=== PATIENT | male | born 1950 | race Caucasian/White ===

== ENCOUNTER 2018-04-21 14:54 | Outpatient (CLI) | payer MEDICARE ==
[2018-04-21 16:08] LABS: Hemoglobin 15.1 g/dL (14.0-18.0); Mean Corpuscular HGB CONC 34.9 g/dL (32.0-36.0); Mean Corpuscular Hemoglobin 30.6 pg (27.0-31.0); Mean Corpuscular Volume 87.7 fl (80.0-94.0); Mean Platelet Volume 6.8 fL (7.4-10.4); Platelet Count 155 thou/uL (130-400); RBC Distribution Width 12.8 % (11.5-14.5); Red Blood Cell (RBC) Count 4.94 mill/uL (4.70-6.10); White Blood Cell (WBC) Count 7.1 thou/uL (4.8-10.8)
[2018-04-21 16:19] LABS: PTT 27.5 SEC (22.9-36.1); Prothrombin Time 13.2 SEC (12.0-14.7)
[2018-04-21 16:20] LABS: ALT (SGPT) 28 U/L (8-55); AST (SGOT) 25 U/L (5-34); Albumin 4.3 g/dL (3.4-4.8); Alkaline Phosphatase 64 U/L (40-150); Anion Gap 13 mmol/L (10-20); BUN (Urea Nitrogen) 20 mg/dL (8.4-25.7); Bilirubin, Total 0.5 mg/dL (0.2-1.2); Calc. Creatinine Clearance 0 mL/min (70-130); Calcium 9.3 mg/dL (7.8-10.44); Carbon Dioxide 27 mmol/L (23-31); Chloride 103 mmol/L (98-107); Estimated GFR-MDRD 59; Globulin 2.9 g/dL (2.4-3.5); Glucose 141 mg/dL (80-115); Potassium 4.5 mmol/L (3.5-5.1); Protein, Total 7.2 g/dL (5.8-8.1); Sodium 138 mmol/L (136-145)
== END 2018-04-21 14:55 | disposition home or self-care (01) ==
LOC: LABBT 14:54
PROVIDERS: ATTEND Internal Medicine Cardiovascular Disease
DX: Z01.812 Encounter for preprocedural laboratory examination (principal); R07.9 Chest pain, unspecified; R94.39 Abnormal result of other cardiovascular function study
CPT/HCPCS: 80053; 85027; 85610; 85730

== ENCOUNTER → 2018-05-03 | Day surgery (SDC) | payer MEDICARE ==
[2018-04-21 15:19] VITALS: BMI 29.4
[~2018-05-03] MED LIST: Diazepam 5 MG TAB ONE; Fentanyl 100 MCG/2 ML VIAL ONE; Heparin 10,000 UNITS/1 ML VIAL ONE; Iopamidol 370 76% 100 ML VIAL ONE; Iopamidol 370 76% 50 ML VIAL FS ONE; Lidocaine 1% (PF) 30 ML VIAL ONE; Midazolam HCl 2 mg/2 ml Vial ONE; Naproxen 500 MG TAB PO SCH; Nitroglycerin 100MG/250ML BOT 250 ML ONE; Sodium Chloride 0.9% 1,000 ML IV SCH
== END ==
LOC: CCL 06:02
PROVIDERS: ATTEND Internal Medicine Cardiovascular Disease
DX: I25.118 Atherosclerotic heart disease of native coronary artery with other forms of angina pectoris (principal); I10 Essential (primary) hypertension; E78.5 Hyperlipidemia, unspecified; E11.9 Type 2 diabetes mellitus without complications; E78.00 Pure hypercholesterolemia, unspecified; G47.30 Sleep apnea, unspecified; Z88.0 Allergy status to penicillin; Z79.82 Long term (current) use of aspirin; Z79.899 Other long term (current) drug therapy
CPT/HCPCS: 76942; 85347 ×3; 93005; 93458; 93798; C1725; C1769 ×2; C1874; C1887; C9600; 92928; 99152; 99153; J1644; J2001; J2250; J3010

== ENCOUNTER 2019-01-01 00:14 | Outpatient (CLI) | payer MEDICARE ==
[2019-01-01 10:17] LABS: #Eosinphils 0.2 thou/uL (0.0-0.7); #Lymphocytes 1.7 thou/uL (1.20-3.40); #Monocytes 0.5 thou/uL (0.11-0.59); #Neutrophils 3.2 thou/uL (1.40-6.50); %Basophils 0.7 % (0.0-1.0); %Eosinophils 2.9 % (0.0-10.0); %Lymphocytes 30.6 % (21.0-51.0); %Monocytes 9.6 % (0.0-10.0); %Neutrophils 56.2 % (42.0-75.0); Hemoglobin 15.5 g/dL (14.0-18.0); Mean Corpuscular HGB CONC 33.9 g/dL (32.0-36.0); Mean Corpuscular Hemoglobin 30.6 pg (27.0-31.0); Mean Corpuscular Volume 90.2 fL (78.0-98.0); Mean Platelet Volume 7.3 fL (7.4-10.4); Platelet Count 163 thou/uL (130-400); RBC Distribution Width 13.1 % (11.5-14.5); Red Blood Cell (RBC) Count 5.06 mill/uL (4.70-6.10); White Blood Cell (WBC) Count 5.6 thou/uL (4.8-10.8)
[2019-01-01 10:34] LABS: Anion Gap 14 mmol/L (10-20); BUN (Urea Nitrogen) 22 mg/dL (8.4-25.7); Calc. Creatinine Clearance 0 mL/min (70-130); Calcium 9.7 mg/dL (7.8-10.44); Carbon Dioxide 26 mmol/L (23-31); Chloride 98 mmol/L (98-107); Estimated GFR-MDRD 52; Glucose 144 mg/dL (80-115); Sodium 134 mmol/L (136-145)
== END 2019-01-01 00:15 | disposition home or self-care (01) ==
LOC: LABBT 00:14
PROVIDERS: ATTEND Specialist
DX: Z01.812 Encounter for preprocedural laboratory examination (principal); K40.90 Unilateral inguinal hernia, without obstruction or gangrene, not specified as recurrent
CPT/HCPCS: 80048; 85025

== ENCOUNTER 2019-01-03 05:53 | Day surgery (SDC) | payer MEDICARE ==
--- NOTE | 2019-01-01 08:49 | HP ---
HISTORY OF PRESENT ILLNESS: Rene Field is a 68-year-old male patient, referred by Dr. Gonzáles for an inguinal hernia. The patient is appreciated to have a right inguinal hernia for the past 2 months. The patient has had a cardiac stent placed in the past, has been evaluated Dr. Gonzáles and cleared for anesthesia for robot repair of his right inguinal hernia using mesh. Dr. Cifuentes, urology, verified on exam that he had a right inguinal hernia. The patient on exam was noted to have bilateral inguinal hernias, right inguinal hernia extending to the scrotum, and left present on Valsalva. Plan is for robot repair of bilateral inguinal hernias. He understands risks and benefits, infection, bleeding, reoperation, recurrence of the hernia, chronic pain, and consents, questions answered. ALLERGIES: PENICILLIN. TOBACCO: None. ALCOHOL: Socially, occasionally. PAST MEDICAL HISTORY: Coronary artery disease, stent in April 2018, followed by Dr. Gonzáles. Diabetes mellitus type 2. Sleep apnea, on CPAP. Hypercholesterolemia, right bundle branch block, chronic. PAST SURGICAL HISTORY: Cardiac cath and stents in 2018. MEDICATIONS: 1. Vitamin B12. 2. Plavix a day. 3. Discontinued Brilinta. 4. Amlodipine 2.5 mg a day. 5. Lisinopril 20 mg a day. 6. Pravastatin 20 mg a day. 7. Hydrochlorothiazide 25 mg a day. REVIEW OF SYSTEMS: A 10-point noncontributory otherwise. PHYSICAL EXAMINATION: VITAL SIGNS: Weight 215 pounds, height 5 feet 10 inches, blood pressure 120/67, pulse 60, temperature 98.8 degrees. HEAD, EARS, EYES, NOSE, AND THROAT: Unremarkable. LUNGS: Clear to auscultation. CARDIAC: Regular rate and rhythm without murmur or gallop. ABDOMEN: Soft, nontender, and nondistended. He has bilateral inguinal hernias, right greater than left. Right is into his scrotum. Testicles are normal. EXTREMITIES: Unremarkable. ASSESSMENT: Bilateral inguinal hernias. PLAN: Robot repair using mesh, repair of bilateral inguinal hernias as outpatient. He will hold his Plavix prior to the surgery, resume it the next day. He understands risks of infection, bleeding, reoperation, risks as noted above. Questions answered. Job ID: [id number]
[2019-01-01 09:30] VITALS: BMI 30.1
[2019-01-03] MEDS ORDERED: Ketorolac Tromethamine 30 MG/ML VIAL ONE (06:24)
[2019-01-03] MEDS ORDERED: Levofloxacin 500 mg/D5W 100 ml Premix Bag ONE (06:24)
[2019-01-03] MEDS ORDERED: Bupivacaine HCl 0.5%/Epinephrine 1:200,000/PF 30 ml Vial ONE (06:59)
[2019-01-03] MEDS ORDERED: Fentanyl 250 MCG/5 ML VIAL ONE (07:34)
--- NOTE | 2019-01-03 11:01 | OP ---
DATE OF PROCEDURE: 01/03/2019 PREOPERATIVE DIAGNOSIS: Bilateral inguinal hernias, right sliding indirect. POSTOPERATIVE DIAGNOSIS: Bilateral inguinal hernias, right sliding indirect. PROCEDURES PERFORMED: Robot laparoscopic repair of bilateral inguinal hernias, 3DMax large Bard mesh used. ANESTHESIA: General, local 0.5% Marcaine with epinephrine 30 mL. DESCRIPTION OF PROCEDURE: The patient was taken to the operating room, under general anesthesia. Herman catheter was placed at the beginning of the procedure and removed at the end. Abdomen was clipped of hair, prepared with ChloraPrep, and draped in routine fashion. The patient was placed in slight Trendelenburg. Robot docked after trocars inserted. Supraumbilical incision was made and midline of left and pneumoperitoneum to 15 mmHg obtained with a Veress needle, replaced with an 11 port and endoscope placed. This was a balloon port and was inflated with 5 mL of air and then secured to the abdominal wall. Bilateral right and left incisions were made in mid abdomen laterally and an 8 mm port was placed. Robot docked and robotic inguinal hernia repair were undertaken. The patient has very large indirect right inguinal hernia and a smaller indirect left inguinal hernia with lipoma of the cord mostly. On the right side, incision was made in the peritoneum from the anterior superior iliac spine to the midline and flap of peritoneum was dissected free. Medially, the John ligament, pubis identified laterally. Dissection was carried out freeing the peritoneal flap posteriorly. Cord structures dissected free. Large indirect hernia sac dissected free from deep in the scrotum with careful dissection. It was eventually divided. Good hemostasis noted. An 8 cm cord structures cleared and right-sided 3DMax Bard mesh secured passing the medial portion of John ligament with 2-0 Vicryl and the anterior mesh to the abdominal wall lateral to the inferior epigastric vessels, which had been preserved. Cord structures preserved. Mesh properly positioned and then the peritoneal flap closed with continuous suture with #2-0 V-Loc suture. Attention then turned to the left side. Incision was made from the anterior superior iliac spine left to the midline, carried down to skin. I carried the peritoneal flap, dissected free laterally and medially identifying John ligament medially and laterally. The cord structures dissected free. Inferior epigastric vessels identified kept free of harm. Lipoma of the cord, dissected free, skeletonized the cord structures for an 8 cm clearance and then the 3DMax large mesh was left secured to the left side and positioned and secured to John ligament medially with 2-0 Vicryl and anteriorly, the left lateral inferior epigastric vessel 2-0 Vicryl to the abdominal wall. Peritoneal flap closed with continuous suture of 2-0 V-Loc suture. Good closure was appreciated. Pneumoperitoneum reduced. Fascia approximated in the midline with 0 Vicryl. Pneumoperitoneum reduced. All instruments were removed and all skin incisions were approximated to subdermal 4-0 Monocryl. Bladder pre fill with 180 mL of saline and Herman catheter removed. The patient tolerated the procedure well. Job ID: [id number]
[2019-01-03] MEDS ORDERED: Rocuronium Bromide 10 MG/ML (10ML VIAL) ONE (15:41)
[2019-01-03] MEDS ORDERED: PROPOFOL 200 MG/20 ML VIAL ONE (15:41)
[2019-01-03] MEDS ORDERED: Ondansetron PF 4 MG/2 ML Vial ONE (15:41)
== END 2019-01-03 12:40 | disposition home or self-care (01) ==
LOC: SDC 05:53
PROVIDERS: ATTEND Specialist
PROC: 0YUA4JZ Supplement Bilateral Inguinal Region with Synthetic Substitute, Percutaneous Endoscopic Approach (ICD-10-PCS; principal; 2019-01-03)
DX: K40.20 Bilateral inguinal hernia, without obstruction or gangrene, not specified as recurrent (principal); D17.6 Benign lipomatous neoplasm of spermatic cord; I25.10 Atherosclerotic heart disease of native coronary artery without angina pectoris; E11.9 Type 2 diabetes mellitus without complications; G47.30 Sleep apnea, unspecified; E78.00 Pure hypercholesterolemia, unspecified; I45.10 Unspecified right bundle-branch block; I10 Essential (primary) hypertension; Z79.02 Long term (current) use of antithrombotics/antiplatelets; Z79.82 Long term (current) use of aspirin; Z79.899 Other long term (current) drug therapy; Z88.0 Allergy status to penicillin; Z91.048 Other nonmedicinal substance allergy status; Z95.5 Presence of coronary angioplasty implant and graft; Z99.89 Dependence on other enabling machines and devices
CPT/HCPCS: 49650; C1781; J0131; J0670; J1885; J1956; J2405; J2704; J3010

== ENCOUNTER 2019-01-07 08:12 | Emergency (ER) | payer MEDICARE ==
[2019-01-07] MEDS ORDERED: Morphine 4 MG/ML VIAL ONE (08:37)
[2019-01-07] MEDS ORDERED: Ondansetron PF 4 MG/2 ML Vial ONE (08:37)
[2019-01-07 08:56] LABS: #Eosinphils 0.1 thou/uL (0.0-0.7); #Lymphocytes 1.1 thou/uL (1.20-3.40); #Monocytes 0.9 thou/uL (0.11-0.59); #Neutrophils 8.2 thou/uL (1.40-6.50); %Basophils 0.3 % (0.0-1.0); %Eosinophils 0.7 % (0.0-10.0); %Lymphocytes 11.1 % (21.0-51.0); %Monocytes 8.3 % (0.0-10.0); %Neutrophils 79.7 % (42.0-75.0); Hemoglobin 14.6 g/dL (14.0-18.0); Mean Corpuscular HGB CONC 33.2 g/dL (32.0-36.0); Mean Corpuscular Hemoglobin 30.9 pg (27.0-31.0); Mean Platelet Volume 7.4 fL (7.4-10.4); Platelet Count 173 thou/uL (130-400); RBC Distribution Width 12.8 % (11.5-14.5); Red Blood Cell (RBC) Count 4.72 mill/uL (4.70-6.10); White Blood Cell (WBC) Count 10.2 thou/uL (4.8-10.8)
[2019-01-07 09:04] LABS: INR-International Normal Ratio 1.1; PTT 33.8 SEC (22.9-36.1); Prothrombin Time 13.8 SEC (12.0-14.7)
[2019-01-07 09:19] LABS: ALT (SGPT) 18 U/L (8-55); AST (SGOT) 20 U/L (5-34); Albumin 3.8 g/dL (3.4-4.8); Alkaline Phosphatase 64 U/L (40-150); Anion Gap 18 mmol/L (10-20); BUN (Urea Nitrogen) 16 mg/dL (8.4-25.7); Bilirubin, Total 1.4 mg/dL (0.2-1.2); Calc. Creatinine Clearance 0 mL/min (70-130); Calcium 9.6 mg/dL (7.8-10.44); Carbon Dioxide 25 mmol/L (23-31); Chloride 94 mmol/L (98-107); Estimated GFR-MDRD 65; Globulin 3.5 g/dL (2.4-3.5); Glucose 143 mg/dL (80-115); Potassium 3.8 mmol/L (3.5-5.1); Protein, Total 7.3 g/dL (5.8-8.1); Sodium 133 mmol/L (136-145)
[2019-01-07 09:30] LABS: Bilirubin Small (Negative); Blood, Urine Negative (Negative); Clarity CLEAR (Clear); Glucose, Urine (Dipstick) Negative (Negative); Leukocyte Negative (Negative); Nitrite Negative (Negative); Protein, Urine (Dipstick) 100 mg/dL (Neg-Trace); Specific Gravity, Urine 1.022 (1.002-1.036); pH, Urine 5.5 (5.0-9.0)
[2019-01-07 09:33] LABS: Bacteria/HPF None Seen HPF (None Seen); Hyaline Casts/LPF 4-6 HYALINE CAST LPF (0-3 Hyaline); Pathc Cast-AUWi Flag 0.29 (0-2.49); RBC/HPF 0-3 HPF (0-3); Squamous Epithelial None Seen HPF (0-3); WBC/HPF 0-3 HPF (0-3)
--- NOTE | 2019-01-07 11:54 | ULT ---
BILATERAL TESTICULAR ULTRASOUND WITH DOPPLER: HISTORY: Recent hernia repair. Pain and swelling. COMPARISON: None. TECHNIQUE: Mcgrath scale, color flow, Doppler imaging, with spectral waveform analysis was performed of the left an d right testicle. FINDINGS: RIGHT HEMISCROTUM: There is slight heterogeneity throughout the right testicle without discrete mass. Right testicle me asures 3.1 x 2.7 x 4.4 cm. There is complex fluid with echogenicity and septation in the right hemis crotum. Right epididymis is enlarged measuring 2.7 x 1.0 x 1.1 cm. A small 0.2 cm cyst is noted. LEFT HEMISCROTUM: Slight heterogeneity of the left testicle without intratesticular mass. The left testicle measures 3 .3 x 2.3 x 3.7 cm. A small amount of fluid in the left hemiscrotum. Left epididymis is not apprecia alexandro. TESTICULAR DOPPPLER: No significant arterial flow to the right testicle. Minimal venous flow along the periphery. There is diminished arterial flow in the left testicle. IMPRESSION: Diminished vascular flow to both testicles, right greater than left. Urological consultation is helena mmended. Results of the study were discussed with Dr. Penny 01/07/2019 at 9:32 a.m. CODE CR POS: VIGNESH
== END 2019-01-07 10:25 | disposition home or self-care (01) ==
LOC: ERS 08:12
DX: N50.89 Other specified disorders of the male genital organs (principal); I10 Essential (primary) hypertension; E78.5 Hyperlipidemia, unspecified; Z79.82 Long term (current) use of aspirin; Z79.899 Other long term (current) drug therapy
CPT/HCPCS: 76870; 80053; 81003; 81015; 83605; 85025; 85610; 85730; 93976; 96374; 96375; J2270; J2405

== ENCOUNTER 2019-08-03 07:05 | Outpatient (CLI) | payer MEDICARE ==
[2019-08-03 09:57] LABS: #Eosinphils 0.2 thou/uL (0.0-0.7); #Lymphocytes 1.7 thou/uL (1.20-3.40); #Monocytes 0.5 thou/uL (0.11-0.59); %Basophils 0.2 % (0.0-1.0); %Eosinophils 2.6 % (0.0-10.0); %Monocytes 8.1 % (0.0-10.0); %Neutrophils 62.1 % (42.0-75.0); Hemoglobin 15.1 g/dL (14.0-18.0); Mean Corpuscular Hemoglobin 31.9 pg (27.0-31.0); Mean Platelet Volume 7.5 fL (7.4-10.4); Platelet Count 157 thou/uL (130-400); RBC Distribution Width 12.9 % (11.5-14.5); Red Blood Cell (RBC) Count 4.72 mill/uL (4.70-6.10); White Blood Cell (WBC) Count 6.4 thou/uL (4.8-10.8)
[2019-08-03 10:18] LABS: ALT (SGPT) 18 U/L (8-55); AST (SGOT) 22 U/L (5-34); Albumin 4.6 g/dL (3.4-4.8); Alkaline Phosphatase 68 U/L (40-150); Anion Gap 13 mmol/L (10-20); BUN (Urea Nitrogen) 21 mg/dL (8.4-25.7); Bilirubin, Total 0.7 mg/dL (0.2-1.2); Calc. Creatinine Clearance 0 mL/min (70-130); Calcium 9.7 mg/dL (7.8-10.44); Carbon Dioxide 26 mmol/L (23-31); Chloride 99 mmol/L (98-107); Estimated GFR-MDRD 55; Glucose 118 mg/dL (80-115); Potassium 3.8 mmol/L (3.5-5.1); Protein, Total 7.6 g/dL (5.8-8.1); Sodium 134 mmol/L (136-145)
== END 2019-08-03 07:06 | disposition home or self-care (01) ==
LOC: LABBT 07:05
PROVIDERS: ATTEND Internal Medicine Cardiovascular Disease
DX: Z01.812 Encounter for preprocedural laboratory examination (principal); I25.10 Atherosclerotic heart disease of native coronary artery without angina pectoris
CPT/HCPCS: 80053; 85025

== ENCOUNTER 2019-08-09 05:49 | Day surgery (SDC) | payer MEDICARE ==
[2019-08-08 12:02] VITALS: BMI 29.4
[2019-08-09] MEDS ORDERED: Diazepam 5 MG TAB ONE (06:27)
[2019-08-09] MEDS ORDERED: Lidocaine 1% (PF) 30 ML VIAL ONE (07:41)
[2019-08-09] MEDS ORDERED: Fentanyl 100 MCG/2 ML VIAL ONE (07:57)
[2019-08-09] MEDS ORDERED: Iopamidol 370 76% 100 ML VIAL ONE (17:42)
--- NOTE | 2019-08-10 03:30 | DIS ---
DATE OF ADMISSION: 08/09/2019 DATE OF DISCHARGE: 08/09/2019 Mr. Field is doing well. He underwent cardiac catheterization. He has no obstructive coronary stenosis. The stent is widely patent. There is no obvious restenosis. He has no lesion exceeding 10%. The patient will be discharged on aspirin. He will take Plavix for 2 weeks and stop other medicines unchanged. He is not on a beta macrina as this caused bradycardia in the past. Ejection fraction is 55%. The left ventricular function appears low range of normal. He will stay on the ESTEBAN inhibitor. Job ID: [id number]
== END 2019-08-09 13:20 | disposition home or self-care (01) ==
LOC: CCL 05:49
PROVIDERS: ATTEND Internal Medicine Cardiovascular Disease
PROC: 4A023N7 Measurement of Cardiac Sampling and Pressure, Left Heart, Percutaneous Approach (ICD-10-PCS; principal; 2019-08-09)
PROC: B2111ZZ Fluoroscopy of Multiple Coronary Arteries using Low Osmolar Contrast (ICD-10-PCS; 2019-08-09)
DX: I25.10 Atherosclerotic heart disease of native coronary artery without angina pectoris (principal); I10 Essential (primary) hypertension; I45.2 Bifascicular block; E78.00 Pure hypercholesterolemia, unspecified; E11.9 Type 2 diabetes mellitus without complications; G47.30 Sleep apnea, unspecified; Z79.02 Long term (current) use of antithrombotics/antiplatelets; Z79.82 Long term (current) use of aspirin; Z79.899 Other long term (current) drug therapy; Z88.0 Allergy status to penicillin; Z91.048 Other nonmedicinal substance allergy status; Z95.5 Presence of coronary angioplasty implant and graft
CPT/HCPCS: 93458; C1769; J1644; J2001; J3010; Q9967